=== PATIENT | female | born 1975 | race African-American/Black ===

== ENCOUNTER 2018-12-03 22:35 | Emergency (ER) | payer SELFPAY ==
--- NOTE | 2018-12-03 23:45 | RAD ---
CHEST ONE VIEW: 12/03/18 HISTORY: Fever and chills. COMPARISON: 08/11/12. FINDINGS: The cardiac silhouette is magnified by projection. Pulmonary vasculature is unremarkable. Mediastinum is midline. No lobar consolidation or evidence of pneumothorax. IMPRESSION: No active cardiopulmonary abnormalities are demonstrated. POS: [facility]
[2018-12-03 23:47] LABS: #Basophils 0.1 thou/uL (0.0-0.2); #Eosinphils 0.1 thou/uL (0.0-0.7); #Lymphocytes 3.4 thou/uL (1.20-3.40); #Monocytes 0.7 thou/uL (0.11-0.59); #Neutrophils 5.5 thou/uL (1.40-6.50); %Basophils 1.2 % (0.0-1.0); %Eosinophils 0.9 % (0.0-10.0); %Lymphocytes 34.7 % (21.0-51.0); %Monocytes 7.3 % (0.0-10.0); %Neutrophils 55.9 % (42.0-75.0); Hemoglobin 14.5 g/dL (12.0-16.0); Mean Corpuscular HGB CONC 33.2 g/dL (32.0-36.0); Mean Corpuscular Hemoglobin 33.1 pg (27.0-31.0); Mean Corpuscular Volume 99.8 fL (78.0-98.0); Platelet Count 321 thou/uL (130-400); Red Blood Cell (RBC) Count 4.36 mill/uL (4.20-5.40); White Blood Cell (WBC) Count 9.9 thou/uL (4.8-10.8)
[2018-12-04 00:10] LABS: ALT (SGPT) 10 U/L (8-55); AST (SGOT) 14 U/L (5-34); Albumin 3.8 g/dL (3.5-5.0); Alkaline Phosphatase 58 U/L (40-150); Anion Gap 13 mmol/L (10-20); BUN (Urea Nitrogen) 7 mg/dL (7.0-18.7); Bilirubin, Total 0.3 mg/dL (0.2-1.2); CK (CPK) 132 U/L (29-168); Calc. Creatinine Clearance 0 mL/min (70-130); Calcium 8.8 mg/dL (7.8-10.44); Carbon Dioxide 21 mmol/L (22-29); Chloride 106 mmol/L (98-107); Estimated GFR-MDRD Greater than 90; Globulin 2.9 g/dL (2.4-3.5); Glucose 96 mg/dL (70-105); Protein, Total 6.7 g/dL (6.0-8.3); Sodium 136 mmol/L (136-145)
[2018-12-04 00:17] LABS: Bilirubin Negative (Negative); Blood, Urine Negative (Negative); Clarity CLEAR (Clear); Glucose, Urine (Dipstick) Negative (Negative); Leukocyte Negative (Negative); Nitrite Negative (Negative); Protein, Urine (Dipstick) Negative (Neg-Trace); Urobilinogen 0.2 mg/dL (0.2-1.0)
[2018-12-04 00:21] LABS: Pregnancy Test - Urine (BHCG) Negative (Negative); Pregu Control Background? CLEAR/WHITE (CLR/WHITE); Pregu Control Bar Appear? YES (CONTROL BAR); Specific Gravity 1.001 (1.002-1.036)
[2018-12-04 00:23] LABS: Specific Gravity, Urine 1.003 (1.002-1.036)
--- NOTE | 2018-12-06 21:12 | EKG ---
Test Reason : CP Blood Pressure : / mmHG Vent. Rate : 072 BPM Atrial Rate : 072 BPM P-R Int : 090 ms QRS Dur : 066 ms QT Int : 394 ms P-R-T Axes : 017 062 035 degrees QTc Int : 431 ms Sinus rhythm with short CT Low voltage QRS Borderline ECG Confirmed by DULCE JAIN DO ([id number]), editor greeting card [employer] ([id number]) on 12/06/2018 9:11:35 PM Referred By: Confirmed By:DULCE JAIN DO
== END 2018-12-04 01:20 | disposition home or self-care (01) ==
LOC: ERS 22:35
DX: R07.89 Other chest pain (principal); B34.9 Viral infection, unspecified; Z71.6 Tobacco abuse counseling; F17.210 Nicotine dependence, cigarettes, uncomplicated
CPT/HCPCS: 36415; 71045; 80053; 81003; 81025; 82550; 84484; 85025; 87804; 93005; 99406

== ENCOUNTER 2019-09-26 08:27 | Emergency (ER) | payer SELFPAY | END 2019-09-26 09:18 | disposition home or self-care (01) | LOC: ERS 08:27 | DX: M72.2 Plantar fascial fibromatosis (principal); F17.210 Nicotine dependence, cigarettes, uncomplicated | CPT/HCPCS: 99283 ==